=== PATIENT | male | born 1985 | race Caucasian/White ===

== ENCOUNTER 2019-08-23 03:16 | Emergency (ER) | payer OTHER ==
[~2019-08-23] VITALS: Ht 177.8 cm; Wt 65.8 kg
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
--- NOTE | 2019-08-23 03:38 | NUR ---
CALLED KATIE FOR REPORT.
--- NOTE | 2019-08-23 03:46 | NUR ---
PER [employer] 242. ADVISE PATIENT TO VISIT [employer] STATION IN THE AM TO FILE A REPORT. NO UNITS AVAILABLE AT THIS TIME TO RESPOND TO REPORT.
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
[2019-08-23 04:32] VITALS: BP 122/71
== END 2019-08-23 04:33 | disposition home or self-care (01) ==
LOC: ER 03:19
DX: S01.112A Laceration without foreign body of left eyelid and periocular area, initial encounter (principal); Y04.0XXA Assault by unarmed brawl or fight, initial encounter; Y93.89 Activity, other specified; Y92.89 Other specified places as the place of occurrence of the external cause; Y99.8 Other external cause status